=== PATIENT | female | born 2000 | race Caucasian/White ===

== ENCOUNTER 2019-01-13 20:43 | Emergency (ER) | payer SELFPAY ==
[~2019-01-13] VITALS: Ht 157.5 cm; Wt 51.7 kg
[2019-01-13 21:32] VITALS: Ht 157.5 cm; Wt 51.7 kg
[2019-01-14 00:45] VITALS: BP 98/79
== END 2019-01-14 00:45 | disposition home or self-care (01) ==
LOC: ED 20:43
DX: H66.92 Otitis media, unspecified, left ear (principal)
CPT/HCPCS: J1885

== ENCOUNTER 2020-09-16 22:33 | Emergency (ER) | payer MEDICAID ==
[~2020-09-16] VITALS: Ht 157.5 cm; Wt 56.0 kg
[2020-09-16 22:45] VITALS: Ht 157.5 cm; Wt 56.0 kg
[2020-09-16 23:21] VITALS: BP 108/70
== END 2020-09-16 23:21 | disposition home or self-care (01) ==
LOC: ED 22:33
DX: N63.10 Unspecified lump in the right breast, unspecified quadrant (principal)